=== PATIENT | female | born 1995 | race Caucasian/White ===

== ENCOUNTER 2018-05-26 12:09 | Outpatient (CLI) | payer MEDICAID ==
[2018-05-26] MEDS ORDERED: LACTATED RINGERS 500 ML IV ONE (12:15)
[2018-05-26 12:31] VITALS: BP 105/56
[2018-05-26 13:39] LABS: Bacteria,Urine 1+ /HPF (Negative); Bilirubin,Urine NEG (Negative); Blood,Urine NEG (Negative); Color,Urine Yellow (Yellow); Mucus,Urine 3+ /HPF; Urobilinogen,Urine < 2.0 mg/dL (<2.0)
== END 2018-05-26 14:03 | disposition home or self-care (01) ==
LOC: TRG 12:09
PROVIDERS: ATTEND Obstetrics & Gynecology
DX: O47.02 False labor before 37 completed weeks of gestation, second trimester (principal); Z3A.23 23 weeks gestation of pregnancy; Z90.49 Acquired absence of other specified parts of digestive tract
CPT/HCPCS: 81001

== ENCOUNTER 2018-08-25 10:42 | Outpatient (CLI) | payer MEDICAID ==
[2018-08-25] MEDS ORDERED: CELESTONE SOLUSPAN IM ONE (11:59)
== END 2018-08-25 11:09 | disposition home or self-care (01) ==
LOC: TRG 10:42
PROVIDERS: ATTEND Obstetrics & Gynecology
DX: O47.03 False labor before 37 completed weeks of gestation, third trimester (principal); Z3A.36 36 weeks gestation of pregnancy
CPT/HCPCS: 96372; J0702; 96374

== ENCOUNTER 2018-08-26 20:46 | Inpatient (IN) | payer MEDICAID ==
[2018-08-26] MEDS ORDERED: BRETHINE SUB-Q PRN (21:34)
[2018-08-26] MEDS ORDERED: XYLOCAINE 2% INFILTRATI ONE (21:34)
[2018-08-26] MEDS ORDERED: ZOFRAN IV PRN (21:34)
[2018-08-26] MEDS ORDERED: MINERAL OIL PO PRN (21:34)
[2018-08-26] MEDS ORDERED: LACTATED RINGERS 1,000 ML IV SCH (22:00)
[2018-08-26] MEDS ORDERED: CERVIDIL VG ONE (22:00)
[2018-08-26] MEDS ORDERED: PITOCin/NS 30 UNIT/500ML 30 UNITS/500 ML BAG IV SCH (22:00)
[2018-08-26] MEDS ORDERED: PITOCin/NS 20 UNIT/1000ML DRIP 20 UNITS/1,000 ML BAG IV SCH (22:00)
[2018-08-26 22:23] LABS: Hematocrit 31.8 % (30.3-42.9); Hemoglobin 10.6 gm/dl (10.1-14.3); Mean Corpuscular HGB Conc 33 % (30-34); Mean Corpuscular Volume 79 fl (79-97); Platelet Count 272 K/mm3 (140-440); Red Blood Count 4.01 M/mm3 (3.65-5.03); Red Cell Distribution Width 13.4 % (13.2-15.2)
[2018-08-26 22:46] LABS: Alanine Aminotransferase 79 units/L (7-56); Albumin 3.2 g/dL (3.9-5); BUN/Creatinine Ratio 18; Blood Urea Nitrogen 7 mg/dL (7-17); Calcium 9.6 mg/dL (8.4-10.2); Hemolysis Index 0
[2018-08-27] MEDS: AMBIEN PO PRN ×2 (01:43→23:37)
--- NOTE | 2018-08-27 07:24 | History and Physical Report ---
<RAFAROYA Misha - Last Filed: 08/27/18 07:55> History of Present Illness Date of examination: 08/27/18 Date of admission: 08/26/18 20:46 Chief complaint: IOL for cholestasis History of present illness: EDC Confirmation: 09/20/2018 Past History : 1 Term Births: 0 Premature Births: 0 Living Children: 0 Para: 0 Mult. Births: 0 Prev : 0 Aborta: 0 Elect. Ab: 0 Spont. 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) Abnormal PAP: negative Uterine Anomaly: negative Social Hx: Marital Status: Children: 0 Occupation: [employer] Patient is single Active Medications (reviewed today): None Current Allergies (reviewed today): No known allergies Past History Past Medical History: asthma, liver disease, other (Cholestasis of ) Past Surgical History: cholecystectomy [employer] 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[employer]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: other (see HPI) Family/Genetic History: other (see HPI) - Obstetrical History Expected Date of Delivery: 09/20/18 Actual Gestation: 36 Week(s) 4 Day(s) : 1 Para: 0 Hx # Term Pregnancies: 0 Number of Pregnancies: 0 Spontaneous Abortions: 0 Induced : 0 Number of Living Children: 0 Medications and Allergies Allergies Allergy/AdvReac Type Severity Reaction Status Date / Time No Known Allergies Allergy Verified 08/26/18 10:42 Active Meds: Active Medications Ephedrine Sulfate (Ephedrine Sulfate) 10 mg IV Q2M PRN PRN Reason: Hypotension Fentanyl (Sublimaze) 100 mcg IV Q2H PRN PRN Reason: Labor Pain Lactated Ringer's (Lactated Ringers) 1,000 mls @ 125 mls/hr IV DIRECT KWAKU Oxytocin/Sodium Chloride (Pitocin/Ns 20 Unit/1000ml Drip) 20 units in 1,000 mls @ 125 mls/hr IV DIRECT KWAKU Oxytocin/Sodium Chloride (Pitocin/Ns 30 Unit/500ml) 30 units in 500 mls @ 1 mls/hr IV TITR KWAKU; Protocol Lactated Ringer's (Lactated Ringers) 1,000 mls @ 125 mls/hr IV DIRECT KWAKU Mineral Oil (Mineral Oil) 30 ml PO QHS PRN PRN Reason: Constipation Ondansetron HCl (Zofran) 4 mg IV Q8H PRN PRN Reason: Nausea And Vomiting Terbutaline Sulfate (Brethine) 0.25 mg SUB-Q ONCE PRN PRN Reason: Hyperstimulation/Hypertonicity Zolpidem Tartrate (Ambien) 10 mg PO QHS PRN PRN Reason: Insomnia Last Admin: 08/27/18 01:43 Dose: 10 mg Documented by: Review of Systems All systems: negative - Vital Signs Vital signs: Vital Signs Pulse BP 120 H 141/82 08/26/18 21:29 08/26/18 21:29 Temp Pulse Resp BP Pulse Ox 98.6 F 104 H 20 114/62 08/27/18 03:42 08/27/18 07:16 08/27/18 03:42 08/27/18 07:16 - Physical Exam Breasts: Positive: normal Cardiovascular: Regular rate Lungs: Positive: Clear to auscultation, Normal air movement Abdomen: Positive: normal appearance, soft Genitourinary (Female): Positive: normal external genitalia, normal perenium Vulva: both: normal Vagina: Positive: normal moisture Uterus: Positive: normal size Extremities: Positive: normal Deep Tendon Reflex Grade: Normal +2 - Obstetrical FHR: auscultation normal, category 1 Uterine Contraction Monitor Mode: External Cervical Dilatation: 0 Uterine Contraction Pattern: Irregular Uterine Tone Measurement Phase: Resting Uterine Contraction Intensity: Mild Results Result Diagrams: 08/26/18 22:02 08/26/18 22:02 Abnormal lab results 08/26/18 08/26/18 Range/Units 22:02 22:02 MCH 27 L (28-32) pg Creatinine 0.4 L (0.7-1.2) mg/dL Glucose 179 H (65-100) mg/dL AST 48 H (5-40) units/L ALT 79 H (7-56) units/L Alkaline Phosphatase 237 H (35-129) units/L Albumin 3.2 L (3.9-5) g/dL All other labs normal. Assessment and Plan 23y/o @ 37wks, admitted for IOL as recommended by [facility] d/t cholestasis of . GBS neg. Pt received 2 doses of steroids 08/25 & 08/26. cervidil to be removed @ 1000, pt may shower and have regular lunch, then will start pitocin. Plan of care discussed with patient, s/o and RN - advised serial IOL may take several days utilizing different methods of induction. encourage comfort measures. FHT Cat 1 with irregular ctx. All questions addressed. - Patient Problems (1) Cholestasis during in third trimester Current Visit: Yes Status: Acute Plan to address problem: delivery monitor LFTs (2) 36 weeks gestation of Current Visit: Yes Status: Acute Plan to address problem: NICU notified of induction <CHERELLE FERRARO - Last Filed: 08/27/18 09:02> History of Present Illness Date of admission: 08/26/18 20:46 Medications and Allergies Active Meds: Active Medications Ephedrine Sulfate (Ephedrine Sulfate) 10 mg IV Q2M PRN PRN Reason: Hypotension Fentanyl (Sublimaze) 100 mcg IV Q2H PRN PRN Reason: Labor Pain Lactated Ringer's (Lactated Ringers) 1,000 mls @ 125 mls/hr IV DIRECT KWAKU Oxytocin/Sodium Chloride (Pitocin/Ns 20 Unit/1000ml Drip) 20 units in 1,000 mls @ 125 mls/hr IV DIRECT KWAKU Oxytocin/Sodium Chloride (Pitocin/Ns 30 Unit/500ml) 30 units in 500 mls @ 1 mls/hr IV TITR KWAKU; Protocol Lactated Ringer's (Lactated Ringers) 1,000 mls @ 125 mls/hr IV DIRECT KWAKU Mineral Oil (Mineral Oil) 30 ml PO QHS PRN PRN Reason: Constipation Ondansetron HCl (Zofran) 4 mg IV Q8H PRN PRN Reason: Nausea And Vomiting Terbutaline Sulfate (Brethine) 0.25 mg SUB-Q ONCE PRN PRN Reason: Hyperstimulation/Hypertonicity Zolpidem Tartrate (Ambien) 10 mg PO QHS PRN PRN Reason: Insomnia Last Admin: 08/27/18 01:43 Dose: 10 mg Documented by: - Vital Signs Vital signs: Vital Signs Pulse BP 120 H 141/82 08/26/18 21:29 08/26/18 21:29 Temp Pulse Resp BP Pulse Ox 98.8 F 81 18 120/68 08/27/18 07:30 08/27/18 07:46 08/27/18 07:30 08/27/18 07:46 Results Result Diagrams: 08/26/18 22:02 08/26/18 22:02 Abnormal lab results 08/26/18 08/26/18 Range/Units 22:02 22:02 MCH 27 L (28-32) pg Creatinine 0.4 L (0.7-1.2) mg/dL Glucose 179 H (65-100) mg/dL AST 48 H (5-40) units/L ALT 79 H (7-56) units/L Alkaline Phosphatase 237 H (35-129) units/L Albumin 3.2 L (3.9-5) g/dL All other labs normal. 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 RN instructed to confirm its ok for patient's boyfriend to interpret for her.
--- NOTE | 2018-08-27 18:25 | Progress Note ---
Assessment and Plan SVE reassessed without change, pt denies feeling ctx. No leaking or bleeding present. SVE 0.5/60/-1, cephalic. Plan discussed to d/c pitocin, allow regular diet and ambulation, then will place cervidil. All questions addressed via s/o acting as historic interpreter. - Patient Problems (1) Cholestasis during in third trimester Current Visit: Yes Status: Acute (2) 36 weeks gestation of Current Visit: Yes Status: Acute Subjective - Subjective Date of service: 08/27/18 Principal diagnosis: IUP @ 36+4 weeks, cholestasisi Interval history: EDC Confirmation: 09/20/2018 Past History : 1 Term Births: 0 Premature Births: 0 Living Children: 0 Para: 0 Mult. Births: 0 Prev : 0 Aborta: 0 Elect. Ab: 0 Spont. 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) Abnormal PAP: negative Uterine Anomaly: negative Social Hx: Marital Status: Children: 0 Occupation: [employer] Patient is single Active Medications (reviewed today): None Current Allergies (reviewed today): No known allergies Patient reports: no new complaints Objective - Vital Signs Vital Signs: Vital Signs - 12hr 08/27/18 08/27/18 08/27/18 06:46 07:16 07:30 Temperature 98.8 F Pulse Rate 102 H 104 H Respiratory 18 Rate Blood Pressure 127/65 114/62 O2 Sat by Pulse Oximetry 08/27/18 08/27/18 08/27/18 07:46 09:17 09:46 Temperature Pulse Rate 81 106 H 123 H Respiratory Rate Blood Pressure 120/68 191/66 120/71 O2 Sat by Pulse Oximetry 08/27/18 08/27/18 08/27/18 11:35 11:38 14:29 Temperature 98.9 F Pulse Rate 98 H 115 H Respiratory 18 Rate Blood Pressure 116/56 122/60 O2 Sat by Pulse 97 Oximetry 08/27/18 08/27/18 08/27/18 14:34 14:39 14:44 Temperature Pulse Rate 110 H 113 H 110 H Respiratory Rate Blood Pressure O2 Sat by Pulse 97 97 97 Oximetry 08/27/18 08/27/18 08/27/18 14:49 14:54 14:59 Temperature Pulse Rate 115 H 106 H 104 H Respiratory Rate Blood Pressure O2 Sat by Pulse 97 97 96 Oximetry 08/27/18 08/27/18 08/27/18 15:04 15:09 15:14 Temperature Pulse Rate 96 H 98 H 109 H Respiratory Rate Blood Pressure O2 Sat by Pulse 96 96 97 Oximetry 08/27/18 08/27/18 08/27/18 15:19 15:24 15:29 Temperature Pulse Rate 99 H 93 H 101 H Respiratory Rate Blood Pressure O2 Sat by Pulse 97 97 96 Oximetry 08/27/18 08/27/18 08/27/18 15:34 15:39 15:44 Temperature Pulse Rate 101 H 100 H 101 H Respiratory Rate Blood Pressure O2 Sat by Pulse 96 97 95 Oximetry 08/27/18 08/27/18 08/27/18 15:49 15:54 15:59 Temperature Pulse Rate 106 H 93 H 101 H Respiratory Rate Blood Pressure O2 Sat by Pulse 96 96 95 Oximetry 08/27/18 08/27/18 08/27/18 16:04 16:09 16:14 Temperature Pulse Rate 96 H 99 H 100 H Respiratory Rate Blood Pressure O2 Sat by Pulse 95 95 95 Oximetry 08/27/18 08/27/18 08/27/18 16:19 16:24 16:26 Temperature Pulse Rate 105 H 94 H 97 H Respiratory Rate Blood Pressure 116/61 O2 Sat by Pulse 97 97 Oximetry 08/27/18 08/27/18 08/27/18 16:29 16:34 16:39 Temperature Pulse Rate 101 H 92 H 92 H Respiratory Rate Blood Pressure O2 Sat by Pulse 95 95 95 Oximetry 08/27/18 08/27/18 08/27/18 16:44 16:49 16:54 Temperature Pulse Rate 88 95 H 91 H Respiratory Rate Blood Pressure O2 Sat by Pulse 95 96 96 Oximetry 08/27/18 08/27/18 08/27/18 16:59 17:04 17:09 Temperature Pulse Rate 87 90 89 Respiratory Rate Blood Pressure O2 Sat by Pulse 96 95 95 Oximetry 08/27/18 08/27/18 08/27/18 17:14 17:19 17:24 Temperature Pulse Rate 115 H 113 H 101 H Respiratory Rate Blood Pressure O2 Sat by Pulse 96 96 96 Oximetry 08/27/18 08/27/18 08/27/18 17:29 17:34 17:39 Temperature Pulse Rate 112 H 107 H 101 H Respiratory Rate Blood Pressure O2 Sat by Pulse 96 96 96 Oximetry 08/27/18 08/27/18 08/27/18 17:46 17:51 17:56 Temperature Pulse Rate 119 H 112 H 109 H Respiratory Rate Blood Pressure O2 Sat by Pulse 97 97 97 Oximetry 08/27/18 08/27/18 08/27/18 18:01 18:06 18:11 Temperature Pulse Rate 110 H 102 H 103 H Respiratory Rate Blood Pressure O2 Sat by Pulse 96 96 96 Oximetry 08/27/18 18:16 Temperature Pulse Rate 109 H Respiratory Rate Blood Pressure O2 Sat by Pulse 95 Oximetry - Exam Breasts: normal Cardiovascular: Regular rate Lungs: Clear to auscultation, Normal air movement Abdomen: Present: normal appearance, soft Vulva: both: normal Uterus: Present: normal FHR: auscultation normal, category 1 Uterine Contraction Monitor Mode: External Cervical Dilatation: 0.5 Cervical Effacement Percentage: 60 station: -1 Uterine Contraction Frequency (min): 3-5 Uterine Contraction Duration: 60 Uterine Contraction Pattern: Regular Uterine Tone Measurement Phase: Contraction Uterine Contraction Intensity: Mild Extremities: normal Deep Tendon Reflex Grade: Normal +2 - Labs Labs: Abnormal Labs 08/26/18 08/26/18 22:02 22:02 MCH 27 L Creatinine 0.4 L Glucose 179 H AST 48 H ALT 79 H Alkaline Phosphatase 237 H Albumin 3.2 L Laboratory Results - last 24 hr 08/26/18 08/26/18 08/26/18 22:02 22:02 22:02 WBC 8.8 RBC 4.01 Hgb 10.6 Hct 31.8 MCV 79 MCH 27 L MCHC 33 RDW 13.4 Plt Count 272 Sodium 139 Potassium 4.0 Chloride 104.1 Carbon Dioxide 22 Anion Gap 17 BUN 7 Creatinine 0.4 L Estimated GFR > 60 BUN/Creatinine Ratio 18 Glucose 179 H Calcium 9.6 Total Bilirubin 0.30 AST 48 H ALT 79 H Alkaline Phosphatase 237 H Total Protein 6.8 Albumin 3.2 L Albumin/Globulin Ratio 0.9 RPR Nonreactive Blood Type Antibody Screen 08/26/18 22:02 WBC RBC Hgb Hct MCV MCH MCHC RDW Plt Count Sodium Potassium Chloride Carbon Dioxide Anion Gap BUN Creatinine Estimated GFR BUN/Creatinine Ratio Glucose Calcium Total Bilirubin AST ALT Alkaline Phosphatase Total Protein Albumin Albumin/Globulin Ratio RPR Blood Type A POSITIVE Antibody Screen Negative
[2018-08-27] MEDS ORDERED: CERVIDIL VG ONE (19:26)
[2018-08-28] MEDS ORDERED: PITOCin/NS 30 UNIT/500ML 30 UNITS/500 ML BAG IV SCH (08:00)
[2018-08-28] MEDS: LACTATED RINGERS 1,000 ML IV SCH ×2 (11:52→20:40)
[2018-08-28] MEDS ORDERED: CERVIDIL VG ONE (21:00)
--- NOTE | 2018-08-29 01:38 | Progress Note ---
Assessment and Plan Pt sleeping No c/o voiced. VSS FHR Cat 1 Cervidil due out @ 1000. Diet and AM care. POC discussed. All questions addressed. Subjective - Subjective Date of service: 08/28/18 (late entry) Principal diagnosis: IUP @ 36+5 weeks, cholestasis Patient reports: movement normal, no new complaints Objective - Vital Signs Vital Signs: Vital Signs - 12hr 08/28/18 08/28/18 08/28/18 13:40 14:39 15:10 Temperature Pulse Rate 93 H 89 99 H Respiratory Rate Blood Pressure 123/61 139/76 147/81 Blood Pressure [Right] O2 Sat by Pulse Oximetry 08/28/18 08/28/18 08/28/18 15:34 15:40 16:09 Temperature Pulse Rate 101 H 99 H 100 H Respiratory Rate Blood Pressure 115/57 127/76 Blood Pressure [Right] O2 Sat by Pulse 86 Oximetry 08/28/18 08/28/18 08/28/18 16:40 17:00 17:04 Temperature 97.8 F Pulse Rate 93 H 85 Respiratory 20 Rate Blood Pressure 126/66 132/74 Blood Pressure [Right] O2 Sat by Pulse Oximetry 08/28/18 08/28/18 19:07 19:30 Temperature 97.9 F Pulse Rate 86 Respiratory Rate Blood Pressure 134/84 Blood Pressure 134/84 [Right] O2 Sat by Pulse Oximetry - Exam Breasts: deferred Cardiovascular: Regular rate Lungs: Normal air movement Abdomen: Present: normal appearance, soft. Absent: distention, tenderness Uterus: Present: normal FHR: auscultation normal, category 1 Uterine Contraction Monitor Mode: External Cervical Dilatation: 0.5 (cervidil out @ 1000) Cervical Effacement Percentage: 60 station: -2 Uterine Contraction Pattern: Irregular Uterine Tone Measurement Phase: Resting Uterine Contraction Intensity: Mild Extremities: normal Deep Tendon Reflex Grade: Normal +2 - Labs Labs: Abnormal Labs 08/26/18 08/26/18 22:02 22:02 MCH 27 L Creatinine 0.4 L Glucose 179 H AST 48 H ALT 79 H Alkaline Phosphatase 237 H Albumin 3.2 L
[2018-08-29] MEDS: SUBLIMAZE IV PRN ×2 (05:35)
--- NOTE | 2018-08-29 06:01 | Progress Note ---
Assessment and Plan Remove cervidil @ 0800 Diet and AM care Start Pitocin. Will plan ROM. Pt aware she can only have limited pain meds while in labor Will encourage to consider an epidural. Re-eval after AM care Subjective - Subjective Date of service: 08/29/18 (pt req pain meds; cervidil in place) Principal diagnosis: IUP @ 36+5 weeks, cholestasis Patient reports: movement normal, contractions, no new complaints Objective - Vital Signs Vital Signs: Vital Signs - 12hr 08/28/18 08/28/18 08/29/18 19:07 19:30 00:30 Temperature 97.9 F 98 F Pulse Rate 86 88 90 Respiratory 20 Rate Blood Pressure 134/84 Blood Pressure 134/84 128/72 [Right] O2 Sat by Pulse Oximetry 08/29/18 04:30 Temperature 98 F Pulse Rate 70 Respiratory 18 Rate Blood Pressure Blood Pressure 126/70 [Right] O2 Sat by Pulse 100 Oximetry - Exam Breasts: deferred Cardiovascular: Regular rate Lungs: Normal air movement Abdomen: Present: normal appearance, soft. Absent: distention, tenderness Uterus: Present: normal FHR: auscultation normal, category 1 Uterine Contraction Monitor Mode: External Cervical Dilatation: 2.5 (cervidil) Cervical Effacement Percentage: 90 station: -1 Uterine Contraction Pattern: Regular Uterine Tone Measurement Phase: Resting Uterine Contraction Intensity: Mild Extremities: normal Deep Tendon Reflex Grade: Normal +2 - Labs Labs: Abnormal Labs 08/26/18 08/26/18 22:02 22:02 MCH 27 L Creatinine 0.4 L Glucose 179 H AST 48 H ALT 79 H Alkaline Phosphatase 237 H Albumin 3.2 L
--- NOTE | 2018-08-29 09:47 | Progress Note ---
Assessment and Plan Explained POC to pt and her partner. All questions addressed. aware. ROM, clear fluid ISE/IUPC placed Pitocin per protocol GBS negative. Epidural offered if desired. Re-eval as needed. Explained again that vaginal is not certain Will monitor for progress, tolerance. All questions addressed. Subjective - Subjective Date of service: 08/29/18 (Pitocin started) Principal diagnosis: IUP @ 36+6 weeks, cholestasis Patient reports: movement normal, contractions, no new complaints Objective - Vital Signs Vital Signs: Vital Signs - 12hr 08/29/18 08/29/18 08/29/18 00:30 04:30 06:35 Temperature 98 F 98 F Pulse Rate 90 70 Respiratory 20 18 18 Rate Blood Pressure Blood Pressure 128/72 126/70 [Right] O2 Sat by Pulse 100 Oximetry 08/29/18 08:34 Temperature Pulse Rate 96 H Respiratory Rate Blood Pressure 140/87 Blood Pressure [Right] O2 Sat by Pulse Oximetry - Exam Breasts: deferred Cardiovascular: Regular rate Lungs: Normal air movement Abdomen: Present: normal appearance, soft. Absent: distention, tenderness Uterus: Present: normal FHR: auscultation normal, category 1 Uterine Contraction Monitor Mode: Internal Cervical Dilatation: 4 (ROM clear fluid) Cervical Effacement Percentage: 100 (ISE/IUPC placed) station: -1 Uterine Contraction Pattern: Regular Uterine Tone Measurement Phase: Resting Uterine Contraction Intensity: Mild - Labs Labs: Abnormal Labs 08/26/18 08/26/18 22:02 22:02 MCH 27 L Creatinine 0.4 L Glucose 179 H AST 48 H ALT 79 H Alkaline Phosphatase 237 H Albumin 3.2 L
[2018-08-29] MEDS ORDERED: NARCAN 2 MG/2 ML IV PRN (11:20)
[2018-08-29] MEDS ORDERED: fentaNYL-BUPIV 2 MCG/ML-0.125% 200 MCG/100 ML BAG EPIDURAL SCH (12:00)
[2018-08-29] MEDS ORDERED: METHERGINE IM ONE (12:58)
[2018-08-29] MEDS ORDERED: CYTOTEC ONE (12:58)
[2018-08-29] MEDS ORDERED: TYLENOL PO PRN (13:06)
[2018-08-29] MEDS ORDERED: LANSINOH TP PRN (13:06)
[2018-08-29] MEDS ORDERED: BENADRYL PO PRN (13:06)
[2018-08-29] MEDS ORDERED: PHENERGAN PO PRN (13:06)
[2018-08-29] MEDS ORDERED: DULCOLAX PR PRN (13:06)
[2018-08-29] MEDS ORDERED: TUCKS PAD TP PRN (13:06)
[2018-08-29] MEDS ORDERED: MILK OF MAGNESIA PO PRN (13:06)
--- NOTE | 2018-08-29 13:16 | Procedure Note ---
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 RN called me to LDR for delivery. Pt had made rapid progression from 4 to complete. live born female over intact perineum. Baby placed skin to skin on mom's abdomen. Placenta and membrane delivered complete and intact, 3 vessel cord. Pit IVFs. Uterine atony noted, uterine massage, sweep of uterus- several mod size clots removed. Cytotec 800mcg MI placed Methergine IM given. 8/9, EBL 500, Wgt 6-11. Mom and baby remain LDR stable. FF @ umb Lochia small on my departure. - Infant A at 1 minute: 8 at 5 minutes: 9 Gender: Female (wgt 6-11)
[2018-08-29] MEDS ORDERED: SODIUM CHLORIDE FLUSH SYRINGE 10 ML IV NR (14:00)
--- NOTE | 2018-08-29 15:54 | Event Note ---
Date: 08/29/18 Pt s/p non complicated s/p IOL for cholestasis of . Will con't routine post at this time.
[2018-08-29] MEDS: IBUPROFEN PO SCH (21:05)
[2018-08-30 01:09] LABS: Hematocrit 27.3 % (30.3-42.9)
[2018-08-30] MEDS: IBUPROFEN PO SCH ×2 (02:00→10:36)
[2018-08-30] MEDS ORDERED: BOOSTRIX IM ONE (06:00)
[2018-08-30] MEDS ORDERED: M-M-R II VACCINE SUB-Q ONE (06:00)
--- NOTE | 2018-08-30 08:31 | Discharge Summary ---
Providers - Providers Date of Admission: 08/26/18 20:46 Date of discharge: 08/30/18 (patient desires discharge today) Attending physician: MELANIE SMYTH Primary care physician: CHERELLE FERRARO Hospitalization Reason for admission: IOL for cholestasis Condition: Good Pertinent studies: post delivery H&H 12/10.3, anemia d/t acute blood loss at delivery, patient is asymptomatic Procedures: Hospital course: uncomplicated and course Disposition: DC-01 TO HOME OR SELFCARE Core Measure Documentation - Palliative Care Palliative Care/ Comfort Measures: Not Applicable - Core Measures Any of the following diagnoses?: none Exam - Constitutional Vitals: Temp Pulse Resp BP Pulse Ox 97.9 F 94 H 18 131/84 97 08/30/18 07:30 08/30/18 07:30 08/30/18 07:30 08/30/18 07:30 08/30/18 00:10 General appearance: Present: no acute distress, well-nourished - EENT Eyes: Present: PERRL ENT: hearing intact, clear oral mucosa - Neck Neck: Present: supple, normal ROM - Respiratory Respiratory effort: normal Respiratory: bilateral: CTA - Cardiovascular Heart Sounds: Present: S1 & S2. Absent: rub, click - Extremities Extremities: pulses symmetrical, No edema Peripheral Pulses: within normal limits - Abdominal General gastrointestinal: Present: soft, non-tender, non-distended, normal bowel sounds Female genitourinary: Present: normal - Integumentary Integumentary: Present: clear, warm, dry - Musculoskeletal Musculoskeletal: gait normal, strength equal bilaterally - Psychiatric Psychiatric: appropriate mood/affect, intact judgment & insight - Neurologic Neurologic: CNII-XII intact, moves all extremities - Additional findings Additional findings: PPD1 Patient is nursing infant, reports feeling well, she denies any complaints or concerns at this time. Fundus is firm, ML, U/1. Vaginal bleeding is small, patient denies any heavy bleeding or blood clots. Patient reports pain is well controlled with medications. She denies feeling dizzy or lightheaded with position changes or ambulation. Patient reports is going well, and is doing well. She desires discharge today. VSSAF. Iron and colace rx signed on chart. Consult with Dr. Smyth, pt may discharge home today, will f/u in office in 1 week to draw liver and bile salt labs. Plan Follow up with: CHERELLE FERRARO MD [Primary Care Provider] - 7 Days Prescriptions: Docusate Sodium [Colace] 100 mg PO BID PRN #60 capsule PRN Reason: Constipation Ferrous Sulfate [Feosol 325 MG tab] 325 mg PO BID #60 tablet
[2018-08-30] MEDS ORDERED: FEOSOL PO SCH (10:00)
[2018-08-30] MEDS ORDERED: COLACE PO SCH (10:00)
[2018-08-30] MEDS ORDERED: PRENATAL VITAMIN PO SCH (10:00)
[2018-08-30 16:48] VITALS: BP 125/80
== END 2018-08-30 17:40 | disposition home or self-care (01) | DRG 775 ==
LOC: LD 20:46 → OB 08-29 14:50
PROVIDERS: ADMIT Obstetrics & Gynecology; ATTEND Obstetrics & Gynecology
PROC: 10E0XZZ Delivery of Products of Conception, External Approach (ICD-10-PCS; principal; 2018-08-29)
PROC: 3E0P7VZ Introduction of Hormone into Female Reproductive, Via Natural or Artificial Opening (ICD-10-PCS; 2018-08-29)
PROC: 3E0R3BZ Introduction of Anesthetic Agent into Spinal Canal, Percutaneous Approach (ICD-10-PCS; 2018-08-29)
PROC: 00HU33Z Insertion of Infusion Device into Spinal Canal, Percutaneous Approach (ICD-10-PCS; 2018-08-29)
PROC: 3E0234Z Introduction of Serum, Toxoid and Vaccine into Muscle, Percutaneous Approach (ICD-10-PCS; 2018-08-30)
DX: O26.62 Liver and biliary tract disorders in childbirth (principal); K83.1 Obstruction of bile duct; O99.52 Diseases of the respiratory system complicating childbirth; O62.2 Other uterine inertia; J45.909 Unspecified asthma, uncomplicated; O90.81 Anemia of the puerperium; D62 Acute posthemorrhagic anemia; Z3A.36 36 weeks gestation of pregnancy; Z37.0 Single live birth; Z23 Encounter for immunization; Z90.49 Acquired absence of other specified parts of digestive tract
CPT/HCPCS: 36415; 59200; 80053; 82239; 85014; 85018; 85027; 86592; 86850; 86900; 86901; 88307; 90707; 90715; 96372; 96374; G0378; J0702; J2210; J2590; J3010; J7120

== ENCOUNTER 2020-01-26 17:53 | Emergency (ER) | payer SELFPAY ==
--- NOTE | 2020-01-26 18:01 | Event Note ---
ED Screening Note Date of service: 01/26/20 Time: 18:00 ED Screening Note: Patient complains of sudden onset of nausea and vomiting and dizziness today States negative home test Denies abdominal pain This initial assessment/diagnostic orders/clinical plan/treatment(s) is/are subject to change based on patients health status, clinical progression and re- assessment by fellow clinical providers in the ED. Further treatment and workup at subsequent clinical providers discretion. Patient/guardian urged not to elope from the ED as their condition may be serious if not clinically assessed and managed. Initial orders include: Labs
[2020-01-26 18:02] VITALS: BP 136/81
[2020-01-26 18:47] LABS: Basophils % (Auto) 0.4 % (0.0-1.8); Eosinophils % (Auto) 0.5 % (0.0-4.3); Hematocrit 40.9 % (30.3-42.9); Hemoglobin 13.3 gm/dl (10.1-14.3); Lymphocytes # (Auto) 1.5 K/mm3 (1.2-5.4); Lymphocytes % (Auto) 15.7 % (13.4-35.0); Mean Corpuscular HGB Conc 33 % (30-34); Mean Corpuscular Volume 77 fl (79-97); Monocytes # (Auto) 0.4 K/mm3 (0.0-0.8); Monocytes % (Auto) 3.7 % (0.0-7.3); Platelet Count 351 K/mm3 (140-440); Red Cell Distribution Width 14.2 % (13.2-15.2)
[2020-01-26 19:02] LABS: Alanine Aminotransferase 72 units/L (7-56); Albumin 4.5 g/dL (3.9-5); Blood Urea Nitrogen 12 mg/dL (7-17); Calcium 9.9 mg/dL (8.4-10.2); Hemolysis Index 4
[2020-01-26 19:05] LABS: BUN/Creatinine Ratio 20
[2020-01-26 21:41] LABS: Bilirubin,Urine NEG (Negative); Blood,Urine NEG (Negative); Color,Urine Yellow (Yellow); Mucus,Urine 3+ /HPF; Protein,Urine <15 mg/dL mg/dL (Negative); Urobilinogen,Urine < 2.0 mg/dL (<2.0)
[2020-01-26] MEDS ORDERED: diphenhydrAMINE 25 MG CAP PO ONE (22:01)
[2020-01-26] MEDS ORDERED: ACETAMINOPHEN 500 MG TAB PO ONE (22:01)
[2020-01-26] MEDS ORDERED: METOCLOPRAMIDE 10 MG TAB PO ONE (22:01)
[2020-01-26] MEDS ORDERED: ONDANSETRON 4 MG ODT TAB PO ONE (22:01)
[2020-01-26] MEDS ORDERED: NITROFURANTOIN MONOHYD/M-CRYST 100 MG CAP PO ONE (22:01)
--- NOTE | 2020-01-26 23:01 | Emergency Department Report ---
ED Dizziness HPI - General Chief Complaint: Dizziness Stated Complaint: VOMITING/HEADACHE/DIZZY/NAUSEA Time Seen by Provider: 01/26/20 17:57 Source: patient Mode of arrival: Ambulatory Limitations: Language Barrier - History of Present Illness Initial Comments: Patient is a 25-year-old female who presents for dizziness and headache that started today. States nausea vomiting x1 episode. States to negative home test last menstrual cycle 12/12/2019. Patient denies fevers or chills. Patient is tolerating p.o. intake at this time. There is no vaginal bleeding vaginal discharge no low back pain. MD Complaint: dizziness Onset/Timin -: days(s) - Related Data Previous Rx's Medication Instructions Recorded Last Taken Type Docusate Sodium [Colace] 100 mg PO BID PRN #60 capsule 08/30/18 Unknown Rx Ferrous Sulfate [Feosol 325 MG tab] 325 mg PO BID #60 tablet 08/30/18 Unknown Rx Acetaminophen [Acetaminophen TAB] 1,000 mg PO Q6HR PRN #30 tablet 01/26/20 Unknown Rx Metoclopramide [Reglan] 10 mg PO Q6H PRN #30 tablet 01/26/20 Unknown Rx Nitrofurantoin Caroline/M-Cryst 100 mg PO Q12HR 7 Days #14 capsule 01/26/20 Unknown Rx [Macrobid CAP] diphenhydrAMINE [Benadryl CAP] 25 mg PO Q6HR PRN 15 Days #30 01/26/20 Unknown Rx capsule Allergies Allergy/AdvReac Type Severity Reaction Status Date / Time No Known Allergies Allergy Verified 08/26/18 10:42 ED Review of Systems ROS: Stated complaint: VOMITING/HEADACHE/DIZZY/NAUSEA Other details as noted in HPI Constitutional: denies: chills, fever Eyes: denies: eye pain, eye discharge, vision change ENT: denies: ear pain, throat pain Respiratory: denies: cough, shortness of breath, wheezing Cardiovascular: denies: chest pain, palpitations Endocrine: no symptoms reported Gastrointestinal: nausea, vomiting. denies: abdominal pain, diarrhea, constipation Genitourinary: denies: urgency, dysuria, frequency, hematuria, discharge, dyspareunia Musculoskeletal: denies: back pain, joint swelling, arthralgia Skin: denies: rash, lesions Neurological: denies: headache, weakness, paresthesias Psychiatric: denies: anxiety, depression Hematological/Lymphatic: denies: easy bleeding, easy bruising ED Past Medical Hx - Past Medical History Previous Medical History?: Yes Hx Hypertension: No Hx Congestive Heart Failure: No Hx Diabetes: No Hx Deep Vein Thrombosis: No Hx Renal Disease: No Hx Sickle Cell Disease: No Hx Seizures: No Hx Asthma: Yes Hx COPD: No Hx HIV: No - Surgical History Past Surgical History?: Yes Hx Cholecystectomy: Yes - Social History Smoking Status: Former Smoker - Medications Home Medications: Home Medications Medication Instructions Recorded Confirmed Last Taken Type Docusate Sodium [Colace] 100 mg PO BID PRN #60 capsule 08/30/18 Unknown Rx Ferrous Sulfate [Feosol 325 MG tab] 325 mg PO BID #60 tablet 08/30/18 Unknown Rx Acetaminophen [Acetaminophen TAB] 1,000 mg PO Q6HR PRN #30 tablet 01/26/20 Unknown Rx Metoclopramide [Reglan] 10 mg PO Q6H PRN #30 tablet 01/26/20 Unknown Rx Nitrofurantoin Caroline/M-Cryst 100 mg PO Q12HR 7 Days #14 capsule 01/26/20 Unknown Rx [Macrobid CAP] diphenhydrAMINE [Benadryl CAP] 25 mg PO Q6HR PRN 15 Days #30 01/26/20 Unknown Rx capsule ED Physical Exam - General Limitations: Language Barrier General appearance: alert, in no apparent distress - Head Head exam: Present: normocephalic - Eye Eye exam: Present: normal appearance, PERRL, EOMI. Absent: conjunctival injection Pupils: Present: normal accommodation - ENT ENT exam: Present: mucous membranes moist - Neck Neck exam: Present: normal inspection, full ROM. Absent: tenderness - Respiratory Respiratory exam: Present: normal lung sounds bilaterally. Absent: respiratory distress, wheezes, stridor, chest wall tenderness - Cardiovascular Cardiovascular Exam: Present: regular rate, normal rhythm, normal heart sounds. Absent: systolic murmur, diastolic murmur, rubs, gallop - GI/Abdominal GI/Abdominal exam: Present: soft, normal bowel sounds. Absent: distended, tenderness, guarding, rebound, rigid, bruit, hernia - Rectal Rectal exam: Present: deferred - Extremities Exam Extremities exam: Present: normal inspection, full ROM, normal capillary refill. Absent: tenderness - Back Exam Back exam: Present: normal inspection, full ROM. Absent: tenderness, CVA tenderness (R), CVA tenderness (L), vertebral tenderness - Neurological Exam Neurological exam: Present: alert, oriented X3, CN II-XII intact, normal gait, reflexes normal. Absent: motor sensory deficit - Expanded Neurological Exam Expanded Patient oriented to: Present: person, place, time Speech: Present: fluid speech Motor strength exam: RUE: 5, LUE: 5, RLE: 5, LLE: 5 Best Eye Response (Ste[place]): (4) open spontaneously Best Motor Response ([place]): (6) obeys commands Best Verbal Response ([place]): (5) oriented [place] Total: 15 - Psychiatric Psychiatric exam: Present: normal affect, normal mood - Skin Skin exam: Present: warm, dry, intact, normal color. Absent: rash ED Course Vital Signs 01/26/20 18:00 Temperature 98.0 F Pulse Rate 85 Respiratory 18 Rate Blood Pressure 136/81 [Right] O2 Sat by Pulse 98 Oximetry ED Medical Decision Making - Lab Data Result diagrams: 01/26/20 18:15 01/26/20 18:15 Labs 01/26/20 01/26/20 01/26/20 18:15 18:15 18:15 WBC 9.7 RBC 5.30 H Hgb 13.3 Hct 40.9 MCV 77 L MCH 25 L MCHC 33 RDW 14.2 Plt Count 351 Lymph % (Auto) 15.7 Caroline % (Auto) 3.7 Eos % (Auto) 0.5 Baso % (Auto) 0.4 Lymph # (Auto) 1.5 Caroline # (Auto) 0.4 Eos # (Auto) 0.0 Baso # (Auto) 0.0 Seg Neutrophils % 79.7 H Seg Neutrophils # 7.7 Sodium 138 Potassium 4.1 Chloride 100.0 Carbon Dioxide 27 Anion Gap 15 BUN 12 Creatinine 0.6 Estimated GFR > 60 BUN/Creatinine Ratio 20 Glucose 109 H Calcium 9.9 Total Bilirubin 0.40 AST 25 ALT 72 H Alkaline Phosphatase 116 Total Protein 8.6 H Albumin 4.5 Albumin/Globulin Ratio 1.1 Lipase 14 HCG, Quant 0.515 Urine Color Urine Turbidity Urine pH Ur Specific [place] Urine Protein Urine Glucose (UA) Urine Ketones Urine Blood Urine Nitrite Urine Bilirubin Urine Urobilinogen Ur Leukocyte Esterase Urine WBC (Auto) Urine RBC (Auto) U Epithel Cells (Auto) Urine Mucus 01/26/20 Unknown WBC RBC Hgb Hct MCV MCH MCHC RDW Plt Count Lymph % (Auto) Caroline % (Auto) Eos % (Auto) Baso % (Auto) Lymph # (Auto) Caroline # (Auto) Eos # (Auto) Baso # (Auto) Seg Neutrophils % Seg Neutrophils # Sodium Potassium Chloride Carbon Dioxide Anion Gap BUN Creatinine Estimated GFR BUN/Creatinine Ratio Glucose Calcium Total Bilirubin AST ALT Alkaline Phosphatase Total Protein Albumin Albumin/Globulin Ratio Lipase HCG, Quant Urine Color Yellow Urine Turbidity Cloudy Urine pH 6.0 Ur Specific [place] 1.024 Urine Protein <15 mg/dl Urine Glucose (UA) Neg Urine Ketones Tr Urine Blood Neg Urine Nitrite Neg Urine Bilirubin Neg Urine Urobilinogen < 2.0 Ur Leukocyte Esterase Sm Urine WBC (Auto) 12.0 H Urine RBC (Auto) 3.0 U Epithel Cells (Auto) 33.0 H Urine Mucus 3+ - Medical Decision Making ua pos for leuk, wbc, hcg: negative, Headache is improved, [plan dc to home with rx, follow up with pcp 2-3, continue of hydrate , return to emergency if symptoms worsen. Residential Insurance Inspector line was used for this case. pt verbalized agreement and understanding of same. Critical care attestation.: If time is entered above; I have spent that time in minutes in the direct care of this critically ill patient, excluding procedure time. ED Disposition Clinical Impression: Dizziness UTI (urinary tract infection) Qualifiers: Urinary tract infection type: acute cystitis Hematuria presence: without hematuria Qualified Code(s): N30.00 - Acute cystitis without hematuria Disposition: DC-01 TO HOME OR SELFCARE Is pt being admited?: No Does the pt Need Aspirin: No Condition: Stable Instructions: Urinary Tract Infection, Adult, Urinary Tract Infection, Adult, [id number] Additional Instructions: You are not , you have a urinary tract infection, take medications as prescribed for headache and bladder infection , follow up with pcp in 2-3 days, return to ed if symptoms worsen. . Prescriptions: Acetaminophen [Acetaminophen TAB] 1,000 mg PO Q6HR PRN #30 tablet PRN Reason: Headache diphenhydrAMINE [Benadryl CAP] 25 mg PO Q6HR PRN 15 Days #30 capsule PRN Reason: dizziness Nitrofurantoin Caroline/M-Cryst [Macrobid CAP] 100 mg PO Q12HR 7 Days #14 capsule Metoclopramide [Reglan] 10 mg PO Q6H PRN #30 tablet PRN Reason: headache nausea Referrals: GEOVANNY NIETO MD [Staff Physician] - 3-5 Days CHAGO ABREU MD [Staff Physician] - 3-5 Days Forms: Work/School Release Form(ED) Time of Disposition: 23:22 Print Language: THAI
== END 2020-01-26 23:30 | disposition home or self-care (01) ==
LOC: ED 17:53
DX: N39.0 Urinary tract infection, site not specified (principal); J45.909 Unspecified asthma, uncomplicated; Z87.891 Personal history of nicotine dependence; Z90.49 Acquired absence of other specified parts of digestive tract
CPT/HCPCS: 36415; 80053; 81001; 83690; 84702; 85025; 87086; 99283; Q0162